=== PATIENT | female | born 1990 | race Caucasian/White ===

== ENCOUNTER 2019-09-24 08:31 | Outpatient (CLI) | payer OTHER, SELFPAY ==
--- NOTE | 2019-09-24 09:30 | NEURO_ITS ---
TEST: ELECTROENCEPHALOGRAM DIAGNOSIS: COGNITIVE DYSFUNCTION PATIENT NUMBER: [id number] EEG NUMBER: [id number] RECORDING DATE: 09/24/19 CONDITION OF RECORDING: Awake, drowsy and sleep EEG DESCRIPTION: Basic resting occipital frequency consists of moderate amount of fairly well organized low voltage 8-9hz alpha mixed with low voltage 15-18hz beta. During drowsiness low voltage beta activity is seen diffusely mixed with waxing and waning posterior alpha rhythms. Bilateral symmetrical sleep activity is seen during sleep. Photic stimulation produced normal drive. Hyperventilation produced normal and symmetrical build-up. Nonparoxysmal. Nonfocal. Nonlateralizing. IMPRESSION: Normal record. [facility]
== END 2019-09-24 08:32 | disposition home or self-care (01) ==
PROVIDERS: PCP Family Medicine; Visit Provider Family Medicine
DX: Q89.8 Other specified congenital malformations (principal)
CPT/HCPCS: 95816

== ENCOUNTER 2020-04-08 09:23 | Outpatient (CLI) | payer OTHER, SELFPAY ==
--- NOTE | ~2020-04-08 | XR_ITS ---
EXAMINATION: XR chest 2V DATE: 04/08/2020 11:01 INDICATION: Chest pain. TECHNIQUE: Frontal and lateral views of the chest were obtained. COMPARISON: None. FINDINGS: The chest demonstrates clear lungs without pneumonia, pleural effusion, or pneumothorax. Th e heart size is normal. IMPRESSION: 1. No acute cardiopulmonary disease. Reviewed, dictated and finalized at location B. [employer]
--- NOTE | 2020-04-08 09:55 | ECG_ITS ---
Measurements Intervals [place] Rate: 59 P: 0 [place]: 172 QRS: -86 QRSD: 118 T: 33 QT: 433 QTc: 430 Interpretive Statements SINUS BRADYCARDIA INCOMPLETE RIGHT BUNDLE BRANCH BLOCK LEFT ANTERIOR FASCICULAR BLOCK BORDERLINE T WAVE ABNORMALITY- ANT/INF LEADS ABNORMAL ECG Electronically Signed On 04-08-2020 12:08:04 BRINE TANK OPERATOR by Adin Whittington D.O.
== END 2020-04-08 09:24 | disposition home or self-care (01) ==
PROVIDERS: PCP Family Medicine; Visit Provider Physician Assistant
DX: R07.9 Chest pain, unspecified (principal); R06.02 Shortness of breath; I45.10 Unspecified right bundle-branch block
CPT/HCPCS: 71046; 93005

== ENCOUNTER 2020-04-08 12:49 | Emergency (ER) | payer OTHER, SELFPAY ==
[2020-04-08] VITALS (17 sets, daily range): BP systolic 110–146; BP diastolic 66–83; PULSE 65–88; RESP 13–33; TEMP 36.1; O2SAT 99–100
--- NOTE | 2020-04-08 12:50 | ECG_ITS ---
Measurements Intervals [place] Rate: 69 P: 36 [place]: 155 QRS: -85 QRSD: 99 T: 62 QT: 376 QTc: 404 Interpretive Statements SINUS RHYTHM INCOMPLETE RIGHT BUNDLE BRANCH BLOCK LEFT ANTERIOR FASCICULAR BLOCK T WAVE ABNORMALITY IN ANTERIOR LEADS- CONSIDER ISCHEMIA BASELINE ARTIFACT- I, II, AVR, AVL ABNORMAL ECG Electronically Signed On 04-08-2020 12:58:20 BOOK REPAIRER by Adin Whittington D.O.
[2020-04-08 13:10] LABS: Basophils Absolute Auto 0.1 K/mm3 (0.0-0.1); Basophils Percent Auto 0.8 % (0.2-1.2); Eosinophils Absolute Auto 0.1 K/mm3 (0-0.3); Hematocrit 44.1 % (37.0-47.0); Hemoglobin 14.7 g/dL (12.0-15.0); Immature Granulocyte Absolute 0.01 K/mm3 (0.00-0.031); Immature Granulocyte Percent A 0.2 % (0-0.5); Lymphocytes Absolute Auto 1.68 K/mm3 (0.9-3.2); Lymphocytes Percent Auto 27.8 % (18.3-44.2); Mean Corpuscular HGB Conc 33.3 g/dl (32-36); Mean Corpuscular Hemoglobin 30.4 pg (26-34); Mean Corpuscular Volume 91.3 fl (80-100); Monocytes Absolute Auto 0.5 K/mm3 (0.1-0.6); Monocytes Percent Auto 8.4 % (2.6-8.5); Neutrophils Absolute Auto 3.7 K/mm3 (1.3-6.7); Neutrophils Percent Auto 61.8 % (45.5-73.1); Platelet Count Result 267 k/mm3 (150-375); Red Blood Count 4.83 M/mm3 (4.2-5.4); Red Cell Distribution Width 12.6 % (11.5-14.5); White Blood Count 6.1 K/mm3 (4.5-10.0)
[2020-04-08 13:19] LABS: Partial Thromboplastin Time 25.8 SECONDS (22.3-36.8); Prothrombin Time 13.5 Seconds (11.1-14.7)
[2020-04-08 13:21] LABS: Anion Gap 7 mmol/L (8-16); Blood Urea Nitrogen 16 mg/dL (7-17); Calcium 9.9 mg/dL (8.4-10.2); Carbon Dioxide 30 mmol/L (22-30); Chloride 104 mmol/L (98-107); Estimated CRCL calculation 65 ml/min; Estimated Glomerular Filt Rate > 60; Glucose 98 mg/dL (65-105); Potassium 4.5 mmol/L (3.4-5.0); Sodium 141 mmol/L (137-145)
[2020-04-08 13:34] LABS: Troponin I < 0.012 ng/mL (0.000-0.034)
[2020-04-08] MEDS: ASPIRIN 81 MG CHEWABLE TABLET 324 MG PO (13:45)
--- NOTE | 2020-04-08 13:59 | ED.GENADULT ---
HPI - General Adult General Chief complaint: Chest Pain Stated complaint: abnormal EKG, CP Time Seen by Provider: 04/08/20 13:27 Source: patient History of Present Illness HPI narrative: Patient is a 29 y/o female complaining of midsternal chest pain since 5 days ago. She describes her pain as both pressure and sharp. She rates her pain as 5/10. Her pain radiates to left axilla. She also has some SOB worse with exertion. She states that she had COVID test last week and it was negative. She denies any cough or fever. Related Data Home Medications Medication Instructions Recorded Confirmed calcium carbonate-vitamin D3 600 1 tablet PO DAILY 11/19/19 mg (1,500 mg)-800 unit tablet prenat.vits,jai,evd-mspk-jpzpy 1 tablet PO DAILY 02/29/20 Allergies Allergy/AdvReac Type Severity Reaction Status Date / Time No Known Allergies Allergy Verified 04/08/20 08:27 Review of Systems Constitutional: Constitutional: Denies chills, Denies fever(s), Denies headache(s) and Denies weakness Eyes: Eyes: Denies blurry vision ENT: Denies headache(s) and Denies neck pain Cardiovascular: Cardiovascular: Reports chest pain and Reports dyspnea Respiratory: Respiratory: Denies cough and Reports dyspnea Gastrointestinal: Gastrointestinal: Denies abdominal pain, Denies diarrhea, Denies nausea and Denies vomiting Genitourinary: Genitourinary: Denies hematuria and Denies dysuria Musculoskeletal: Musculoskeletal: Denies back pain and Denies neck pain Neurologic: Denies headache(s) and Denies weakness [facility] Past Medical History Medical History Brain injury Surgical History Surgical History H/O oral surgery Family History Family History Grandparent Heart disease Cancer Grandparent Cancer Father In good health Mother In good health Social History Social History Smoking status: Never smoker Second hand tobacco smoke exposure: No Alcohol intake: current Substance use: never Substance use type: does not use Gender identity (if verbalized by the patient): Female Exam Const: General: no acute distress and well developed Orientation/consciousness: oriented to person, oriented to place, oriented to time and patient oriented x3 HENMT: Head: normocephalic Ears: external ears normal General nose exam: Normal external nose present Eyes: General: appearance normal, both eyes and all related structures Conjunctivae: conjunctivae normal Neck: Neck: normal visual inspection and full ROM Chest: Chest palpation & inspection: normal inspection of the chest and no tenderness Resp: Effort & Inspection: normal respiratory effort Auscultation: clear to auscultation bilaterally Cardio: Rate: regular rate Rhythm: regular rhythm GI: GI Palp: No abdominal tenderness and Yes Soft to palpation Skin: General skin exam: normal color and turgor normal Neuro: General: oriented to person, oriented to place, oriented to time and patient oriented x3 Cognition (Neuro): normal cognition Extrem: General: normal to inspection, full ROM and no pedal edema Psych: Appearance: grossly normal Mental Status: mental status grossly normal Affect: normal affect Course Vital Signs Vital signs: Vital Signs Temperature 36.1 C L 04/08/20 12:56 Pulse Rate 71 04/08/20 12:56 Respiratory Rate 20 04/08/20 12:56 Blood Pressure 146/83 H 04/08/20 12:56 Pulse Oximetry 100 04/08/20 12:56 Temperature 36.1 C L 04/08/20 12:56 Pulse Rate 65 04/08/20 15:22 Respiratory Rate 20 04/08/20 15:22 Blood Pressure 116/75 04/08/20 15:01 Pulse Oximetry 100 04/08/20 12:56 Medical Decision Making Vital Signs Vital Signs: Vital Signs Temperature 36.1 C L 04/08/20 12:56 Pulse Rate 71 04/08/20 12:56 Res
[2020-04-08 14:17] LABS: D Dimer 0.27 ug/mL (<0.48)
[2020-04-08 14:28] LABS: NT Pro B Type Natriuretic Pept 56 PG/ML (5-100)
[2020-04-08 14:30] LABS: Add Urine Microscopic? NO; Appearance Urine Clear (Clear); Bilirubin Urine Negative (Negative); Blood Urine Negative (Negative); Color Urine Straw (Yellow); Glucose Urine UA Negative (Negative); Ketones Urine Negative (Negative); Leukocyte Esterase Ur Negative LEU/UL (Negative); Nitrate Urine Negative (Negative); Protein Urine Negative (Negative); Specific Grav Ur 1.013 (1.001-1.035); Urobilinogen Urine Negative mg/dL (<2.0)
[2020-04-08 16:29] LABS: Troponin I < 0.012 ng/mL (0.000-0.034)
== END 2020-04-08 17:08 | disposition home or self-care (01) ==
PROVIDERS: Emergency Provider Emergency Medicine; PCP Family Medicine
DX: R07.2 Precordial pain (principal); I45.2 Bifascicular block; R94.31 Abnormal electrocardiogram [ECG] [EKG]
CPT/HCPCS: 36415; 80048; 81003; 81025; 83880; 84484; 85025; 85380; 85610; 85730; 93005; 99284; A9270

== ENCOUNTER 2021-03-04 07:44 | Outpatient (RCR) | payer OTHER, SELFPAY ==
--- NOTE | 2021-03-04 09:06 | PTOPEVAL ---
PHYSICAL THERAPY EVALUATION Thank you for referring Lara Noriega to [facility].? I am going to hold Lara's chart. If at any time she needs my assistance, she can call me and we will further discuss a plan at that time. Please review, sign, date and return this plan of care MARS. I agree with and certify that the following plan of care is medically necessary. Referring Physician Date Evaluation Diagnosis pelvic pain in with triplets Onset 5 weeks Subjective Information States that she initially Query Text:As Reported By Patient/ started with the normal round Family ligament pain that was sharp and very brief, but more recently she has been having much more severe pains in the lower abdomen that last longer and stop her in her tracks. She is having a healthy triplet so far - is currently 20wks, 2 days. Self Report Pain Assessment Lower Abdomen Reported Pain Level 3 Pain Description Pressure Pain Score Pain Score 3: Self Report Interventions Used Interventions Used By Clinicians Education Lower Extremity Muscle Strength Testing Hip Strength Bilateral Hip Flexion Strength 4 Good Hip Abduction Strength 4 Good Hip Adduction Strength 4+ Good + Hip Strength Comments describes a tension and pulling feeling in the adductors during MMT Knee Strength Bilateral Knee Flexion Strength 4+ Good + Knee Extension Strength 4+ Good + Muscle Length Testing Muscle Length Testing Piriformis w/Hip Flexion >90 Degrees (L) Moderate Tightness,(R) Severe Tightness Left Hamstring Length -30 Query Text:(90 - 90 Position) Right Hamstring Length -30 Query Text:(90 - 90 Position) Palpation tender to palpation at PSIS and SIJ, the left is slightly more tender than the right; left ribs are slightly more stiff than the right; sidelying trunk rotation reveals decreased right thoracic rotation compared to left; patient notes tenderness and tightness with palpation to glutes and low back muscles ; there is no apparent pelvic
--- NOTE | 2021-05-06 16:48 | PCPTNOTE ---
PHYSICAL THERAPY DISCHARGE NOTE Patient:Lara Noriega Date of :1990 Lara came to our clinic on 03/04/21 with c/o pelvic pain with triplet . She was provided with education and appropriate exercises for pain management at the time and was instructed to call back if she required further assistance. Lara has not reached out in two months; therefore, therefore her chart will be discharged at this time. Thank you for referring this patient to [facility]. Please review, sign, date and return this discharge summary MARS. I have been updated about the patient's current status and I agree with discharge from the above service at this time. Referring Physician Date
== END 2021-05-07 09:35 | disposition home or self-care (01) ==
LOC: ANHPT 07:44
PROVIDERS: PCP Family Medicine
DX: R10.2 Pelvic and perineal pain (principal)
CPT/HCPCS: 97162

== ENCOUNTER 2022-12-24 15:12 | Emergency (ER) | payer OTHER, SELFPAY ==
--- NOTE | ~2022-12-24 | XR_ITS ---
EXAMINATION: XR chest 2V DATE: 12/24/2022 15:48 INDICATION: Cough and wheezing. TECHNIQUE: Frontal and lateral views of the chest were obtained. COMPARISON: Chest 2 views 04/08/2020 FINDINGS: There is no pneumonia, pleural effusion, or pneumothorax. The heart size is normal. IMPRESSION: 1. No acute cardiopulmonary disease. Reviewed, dictated and finalized at location E.
[2022-12-24 15:22] VITALS: BP 119/78; PULSE 73; RESP 16; TEMP 37.1; O2SAT 98
--- NOTE | 2022-12-24 15:29 | ED.URI ---
HPI - URI/Sore Throat General Chief Complaint: Upper Respiratory Infection Stated Complaint: COUGH/RIB PAIN Time Seen by Provider: 12/24/22 15:24 Source: patient and RN notes reviewed Mode of arrival: ambulatory Limitations: no limitations History of Present Illness HPI Narrative: Patient presents today with a 3 week history of nonproductive cough. She also reports right posterior rib pain that started today. She has tried Mucinex DM, DayQuil and NyQuil without much relief. Denies congestion, rhinorrhea, shortness of breath, fever. No history of asthma or COPD. She is a nonsmoker. Related Data Home Medications Medication Instructions Recorded Confirmed multivitamin 1 tablet PO DAILY 07/06/22 12/24/22 Allergies Allergy/AdvReac Type Severity Reaction Status Date / Time No Known Drug Allergies Allergy Mild Unknown Verified 12/24/22 15:19 Review of Systems Review of Systems: CONSTITUTIONAL: Denies body aches, fever, chills, or sweats. EYES: Denies visual changes, redness, or discharge. ENT: Denies rhinorrhea, congestion, sore throat, or otalgia. CARDIOVASCULAR: Denies chest pain, palpitations, or edema. RESPIRATORY: Denies dyspnea.+ cough, rib pain GASTROINTESTINAL: Denies abdominal pain, nausea, vomiting, or diarrhea. GENITOURINARY: Denies dysuria or hematuria. SKIN: Denies rash, itching, or wounds. MUSCULOSKELETAL: Denies back pain, joint pain, or myalgia. NEUROLOGIC: Denies headache, numbness, tingling, or weakness. PSYCH: Denies depression or anxiety. [facility] Past Medical History Medical History Bipolar disorder Brain injury Chronic idiopathic periventricular leukomalacia Hydrocephalus Migraine without status migrainosus Surgical History Surgical History H/O oral surgery Family History Family History Grandparent Heart disease Cancer Grandparent Cancer Father In good health Mother In good health Social History Social History Smoking status: Never smoker Second hand tobacco smoke exposure: No Alcohol intake: current Alcohol use details: rare Substance use: never Substance use type: does not use Lack of Transportation: No Lack of Food: Never True Current Housing: I Have Housing Concerned About Future Housing: No Difficulty Paying Gas/Electric Bills: No Difficulty Paying for Meds: No Currently Unemployed: No Education: Master's Degree or Higher Difficulty w/ Childcare or Family Care: No Living arrangements: with family Occupation/Education: occupation Gender identity (if verbalized by the patient): Female Comments At time of signature, I have reviewed and agree with nursing past medical, surgical, social and family history unless otherwise noted. Please see nursing chart for further information. There is no relevant family history pertinent to the presenting complaint Exam Narrative: GENERAL: Well-appearing, well-nourished, and in no acute distress. HEAD: Normocephalic, atraumatic. EYES: EOMI. No redness or drainage. Conjunctivae normal. ENT: Mucous membranes pink and moist. NECK: Normal AROM. Supple. No lymphadenopathy. CHEST: No respiratory distress. Mild inspiratory wheezes throughout. Harsh cough elicited with deep breaths. HEART: Regular rate and rhythm. No murmur appreciated. Normal peripheral pulses. EXTREMITIES: Normal range of motion. No edema. SKIN: Warm, dry, no rash. Capillary refill normal. Normal skin turgor. NEURO: No focal deficits. Alert and oriented x3. Gait steady. PSYCH: Normal affect. No signs of depression or anxiety. Course Course Level of Care: Express Care Visit Vital Signs Vital signs: Vital Signs Temperature 98.7 F 12/24/22 15:22 Pulse Rate 73 /
== END 2022-12-24 16:17 | disposition home or self-care (01) ==
PROVIDERS: Emergency Provider Nurse Practitioner; PCP Family Medicine
DX: J40 Bronchitis, not specified as acute or chronic (principal); F31.9 Bipolar disorder, unspecified
CPT/HCPCS: 71046; 99213; G0463

== ENCOUNTER 2024-05-22 11:14 | Emergency (ER) | payer OTHER, SELFPAY ==
[2024-05-22 11:21] VITALS: BP 111/71; PULSE 72; RESP 16; TEMP 37; O2SAT 99
--- NOTE | 2024-05-22 11:40 | ED.URI ---
HPI - URI/Sore Throat General Chief Complaint: Upper Respiratory Infection Stated Complaint: Strep Symptoms Time Seen by Provider: 05/22/24 11:40 Source: patient, RN notes reviewed and old records reviewed Mode of arrival: ambulatory Limitations: no limitations History of Present Illness HPI Narrative: patient presents with complaints of sore throat, body aches, right ear pain. She reports all symptoms began last night. She has not been taking any medication for her symptoms. She does report multiple infections to the right ear in the past, multiple surgeries and tube placements as well. Related Data Home Medications ?Medication ?Instructions ?Recorded ?Confirmed ?Last Taken ?Type multivitamin 1 tablet PO DAILY 07/06/22 01/25/24 Unknown History Allergies Allergy/AdvReac Type Severity Reaction Status Date / Time No Known Drug Allergies Allergy Mild Unknown Verified 05/22/24 11:19 Review of Systems Review of Systems: All systems reviewed & are unremarkable except as noted in HPI and below Constitutional: Constitutional: Reports no additional constitutional complaints and Reports chills ENT: Reports system reviewed and no additional complaints, except as documented, Reports otalgia, Reports nasal discharge and Reports sore throat Cardiovascular: Cardiovascular: Reports no additional cardiovascular complaints Respiratory: Respiratory: Reports no additional respiratory complaints Gastrointestinal: Gastrointestinal: Reports no additional gastrointestinal complaints [facility] Past Medical History Medical History Bipolar disorder Brain injury Chronic idiopathic periventricular leukomalacia Hydrocephalus Migraine without status migrainosus Surgical History Surgical History H/O oral surgery Family History Family History Grandparent Heart disease Cancer Grandparent Cancer Father In good health Mother In good health Social History Social History Smoking status: Never smoker Second hand tobacco smoke exposure: No Alcohol intake: current Alcohol use details: rare Substance use: never Substance use type: does not use Lack of Transportation: No Lack of Food: Never True Current Housing: I Have Housing Concerned About Future Housing: No Difficulty Paying Gas/Electric Bills: No Difficulty Paying for Meds: No Currently Unemployed: No Education: Master's Degree or Higher Difficulty w/ Childcare or Family Care: No Living arrangements: with family Occupation/Education: occupation Gender identity (if verbalized by the patient): Female Comments At the time of my signature, I reviewed and agree with the nursing past medical, surgical, social, and family history. There is no relevant family history pertinent to the patient complaint. Exam Const: General: cooperative, no acute distress, alert and awake Orientation/consciousness: oriented to person, oriented to place and oriented to time HENMT: Head: normal to inspection Ears: TM abnormal bulging on the right, erythematous on the right and with loss of landmarks on the right Mouth: Yes moist mucous membranes Throat: posterior oropharynx normal Resp: Effort & Inspection: normal respiratory effort and able to speak in complete sentences Auscultation: clear to auscultation bilaterally, no crackles, no rales, no rhonchi and no wheezes Cardio: Palpation: normal PMI Rate: regular rate Rhythm: regular rhythm Heart sounds: S1 normal heart sound present and S2 normal heart sound present Neuro: General: oriented to person, oriented to place and oriented to time Cranial nerves: Yes CN's II-XII intact bilaterally Psych: Appearance: grossly normal Thought process: Normal thought process present Insight: Good insight present (Psych) Judgement: Good judgement present (Psych) Course Course Level of Care: Express Care Visit Vital Signs Vital signs: Vital Signs Temperature 98.6 F 05/22/24 11:21 Pulse Rate 72 05/22/24 11:21 Respiratory Rate 16 05/22/24 11:21 Blood Pressure 111/71 05/22/24 11:21 Pulse Oximetry 99 05/22/24 11:21 Oxygen Delivery Room Air 05/22/24 11:21 Temperature 98.6 F 05/22/24 11:21 Pulse Rate 72 05/22/24 11:21 Respiratory Rate 16 05/22/24 11:21 Blood Pressure 111/71 05/22/24 11:21 Pulse Oximetry 99 05/22/24 11:21 Oxygen Delivery Room Air 05/22/24 11:21 Reviewed MDM - URI/Sore Throat MDM Narrative Medical decision making narrative: Negative COVID, negative flu, negative strep. Culture pending. Exam consistent with otitis media. Patient nontoxic appearing, stable for discharge home with p.o. antibiotic therapy with prednisone burst. Discharge instructions reviewed with patient, as well as provided in writing per nursing staff. The instructions also include specific and strict return/GO TO THE ER as well as f/u information. All questions have been answered, and the patient deny any further questions with discharge and discharge plan. Some parts of this dictation were generated by voice recognition software and may contain typographical and/or grammatical inaccuracies. Differential Diagnosis Differential diagnosis: Likely upper respiratory infection, otitis media, viral infection, influenza and pharyngitis Medical Records Attestation: I reviewed the patient's medical records. Lab Data Attestation: I reviewed the patient's lab results. Discharge Plan Discharge Clinical Impression: Otitis media Qualifiers: Otitis media type: suppurative Chronicity: acute Laterality: right Recurrence: not specified as recurrent Spontaneous tympanic membrane rupture: without spontaneous rupture Qualified Code(s): H66.001 - Acute suppurative otitis media without spontaneous rupture of ear drum, right ear Patient Disposition: Home, Self-Care Condition: Stable Instructions: Antibiotic Form, Earache (ED) Additional Instructions: Take medication as prescribed. Follow with primary care provider. Emergency department for new or worse symptoms Patient Language: Turkmen Prescriptions: New amoxicillin-pot clavulanate 875-125 mg tablet 1 tablet PO Q12H Qty: 20 0RF prednisone 50 mg tablet 50 mg PO DAILY Qty: 5 0RF No Action multivitamin Tablet 1 tablet PO DAILY famotidine 40 mg tablet 40 mg PO QHS Qty: 30 2RF lamotrigine 150 mg tablet See Rx Instructions .ROUTE .COMPLEX Qty: 90 2RF Dose Instruction: TAKE 1 TABLET BY MOUTH EVERY DAY Rx Instructions: TAKE 1 TABLET BY MOUTH EVERY DAY citalopram 10 mg tablet 10 mg PO DAILY Qty: 90 1RF buspirone 10 mg tablet See Rx Instructions PO BID PRN (Reason: anxiety) Qty: 60 0RF Rx Instructions: orally twice a day PRN; Take 0.5 - 1 orally twice a day; Follow-up/Referrals: PHYSICIAN,TRAINING MGR [Primary Care Provider] - 2 Weeks
[2024-05-22 11:44] LABS: EDCOVIDSCREEN Negative (Negative); EDINFLUASCREEN Negative (Negative); EDINFLUBSCREEN Negative (Negative); EDSTREPNEGPOS1 Negative (Negative)
== END 2024-05-22 11:52 | disposition home or self-care (01) ==
PROVIDERS: Emergency Provider Nurse Practitioner Family
DX: H66.001 Acute suppurative otitis media without spontaneous rupture of ear drum, right ear (principal); F31.9 Bipolar disorder, unspecified; Z20.822 Contact with and (suspected) exposure to COVID-19
CPT/HCPCS: 87081; 87426; 87804; 87880; 99213; G0463